=== PATIENT | male | born 1970 | race Caucasian/White ===

== ENCOUNTER 2017-11-18 09:13 | Emergency (ER) | payer OTHER ==
[2017-11-18 09:45] VITALS: BMI 39.6
[2017-11-18 10:15] VITALS: BP 114/74; PULSE 72; RESP 18; TEMP 98.8; O2SAT 99
--- NOTE | 2017-11-18 10:27 | C.PDOC ---
History Of Present Illness 47 y/o male presents to ED with complaints of right sided back radiating to groin and right leg for 3 weeks. Patient states pain is worse with movement and denies dysuria, numbness, weakness or any other complaints at this time. Time Seen by Provider: 11/18/17 10:25 Chief Complaint (Nursing): Back Pain History Per: Patient History/Exam Limitations: no limitations Onset/Duration Of Symptoms: Days Current Symptoms Are (Timing): Still Present Quality Of Discomfort: "Pain" Past Medical History Reviewed: Historical Data, Nursing Documentation, Vital Signs Vital Signs: Last Vital Signs Temp 98.8 F 11/18/17 10:00 Pulse 72 11/18/17 10:00 Resp 18 11/18/17 10:00 BP 114/74 11/18/17 10:00 Pulse Ox 99 11/18/17 10:28 - Medical History PMH: Hypercholesterolemia Surgical History: Appendectomy Family History: States: No Known Family Hx - Social History Hx Tobacco Use: Yes Hx Alcohol Use: Yes Hx Substance Use: No - Immunization History Hx Tetanus Toxoid Vaccination: No Hx Influenza Vaccination: Yes Hx Pneumococcal Vaccination: No Review Of Systems Constitutional: Negative for: Fever, Chills Gastrointestinal: Negative for: Nausea, Vomiting Genitourinary: Negative for: Dysuria, Hematuria Musculoskeletal: Positive for: Back Pain Neurological: Negative for: Weakness, Numbness Physical Exam - Physical Exam Appears: Non-toxic, No Acute Distress Skin: Warm, Dry, No Rash Head: Atraumatic, Normacephalic Oral Mucosa: Moist Neck: Supple Cardiovascular: Rhythm Regular Respiratory: Normal Breath Sounds, No Rales, No Rhonchi, No Wheezing Gastrointestinal/Abdominal: Soft, No Tenderness, No Guarding, No Rebound Back: No CVA Tenderness, Straight Leg Raising (pain is worse), Other (Right para sacral pain on palpation radiating to back of leg) Extremity: Normal ROM, Capillary Refill (<2 seconds) Neurological/Psych: Oriented x3 ED Course And Treatment O2 Sat by Pulse Oximetry: 99 (RA) Pulse Ox Interpretation: Normal Medical Decision Making Medical Decision Making: Impression: Back pain Plan: Muscle relaxant and anti inflammatory medication will be given Pt will be discharged and advised if pain is persistent to have imaging done for further evaluation Disposition - Disposition Referrals: [facility] [Outside] Disposition: HOME/ ROUTINE Disposition Time: 10:25 Condition: GOOD Prescriptions: Cyclobenzaprine [Cyclobenzaprine HCl] 10 mg PO TID #15 tab Naproxen [Naprosyn] 500 mg PO BID #20 tablet Instructions: Sciatica (ED) Forms: [facility] (Georgian) - Clinical Impression Clinical Impression: Sciatica - Scribe Statement The provider has reviewed the documentation as recorded by the Hannahibandrea Briceno All medical record entries made by the Hannahibandrea were at my direction and personally dictated by me. I have reviewed the chart and agree that the record accurately reflects my personal performance of the history, physical exam, medical decision making, and the department course for this patient. I have also personally directed, reviewed, and agree with the discharge instructions and disposition.
== END 2017-11-18 10:35 | disposition home or self-care (01) ==
LOC: C.ER 09:13
DX: M54.30 Sciatica, unspecified side (principal)

== ENCOUNTER 2018-08-17 07:12 | Emergency (ER) | payer SELFPAY ==
[2018-08-17 07:12] VITALS: BMI 39.6
[2018-08-17 07:23] VITALS: RESP 18
[2018-08-17] MEDS ORDERED: Lidocaine 5% Patch TD STA (08:17)
[2018-08-17] MEDS ORDERED: Dexamethasone 4 mg/1 ml IM STA (08:17)
--- NOTE | 2018-08-17 08:17 | C.PDOC ---
History Of Present Illness 47-year-old male, presents to the emergency department with complaints of back pain x3 weeks. 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 He denies any numbness/weakness, nausea/vomiting, direct trauma, bladder/bowel incontinence, or any other associated symptoms. No other complaints at this time. Time Seen by Provider: 08/17/18 07:27 Chief Complaint (Nursing): Back Pain History Per: Patient History/Exam Limitations: no limitations Past Medical History Reviewed: Historical Data, Nursing Documentation, Vital Signs Vital Signs: Last Vital Signs Temp 98.3 F 08/17/18 07:19 Pulse 63 08/17/18 07:19 Resp 18 08/17/18 07:19 BP 144/90 08/17/18 07:19 Pulse Ox 99 08/17/18 07:19 - Medical History PMH: Hypercholesterolemia Surgical History: Appendectomy Family History: States: No Known Family Hx - Social History Hx Tobacco Use: Yes Hx Alcohol Use: Yes Hx Substance Use: No - Immunization History Hx Tetanus Toxoid Vaccination: No Hx Influenza Vaccination: Yes Hx Pneumococcal Vaccination: No Review Of Systems Constitutional: Negative for: Fever, Chills Cardiovascular: Negative for: Chest Pain Gastrointestinal: Negative for: Nausea, Vomiting Genitourinary: Negative for: Incontinence Musculoskeletal: Positive for: Back Pain Neurological: Negative for: Weakness, Numbness Physical Exam - Physical Exam Appears: Non-toxic, No Acute Distress Skin: Warm, Dry, No Rash Head: Atraumatic, Normacephalic Eye(s): bilateral: Normal Inspection Nose: Normal Oral Mucosa: Moist Lips: Normal Appearing Neck: Normal ROM, No Midline Cervical Tenderness, No Paracervical Tenderness, Supple Chest: Symmetrical Cardiovascular: Rhythm Regular, No Friction Rub, No Murmur Respiratory: Normal Breath Sounds, No Accessory Muscle Use Gastrointestinal/Abdominal: Bowel Sounds (active), Soft, No Tenderness Back: No CVA Tenderness, No Vertebral Tenderness, Paraspinal Tenderness (left) Extremity: Normal ROM, No Deformity, No Swelling Pulses: Left Dorsalis Pedis: Normal, Right Dorsalis Pedis: Normal Neurological/Psych: Oriented x3, Normal Speech, Normal Motor, Normal Sensation Gait: Steady ED Course And Treatment O2 Sat by Pulse Oximetry: 99 Pulse Ox Interpretation: Normal (RA) Medical Decision Making Medical Decision Making: Plan: * Decadron, Lidocaine, Toradol * XR Spine * Reassess and Disposition On re-exam, the patient reports improvement of symptoms. Lungs are CTA, heart is RRR, abdomen is soft, non-tender and the patient is tolerating Po well. Follow up with the medical doctor within 1-2 days, Return if worsened. Disposition - Disposition Referrals: Efrain Andrade MD [Medical Doctor] - Disposition: HOME/ ROUTINE Disposition Time: 09:15 Condition: STABLE Additional Instructions: Follow up with the medical doctor within 1-2 days. Return if worsened. Prescriptions: Diazepam [Valium] 2 mg PO TID #21 tab Lidocaine 5% [Lidoderm] 1 each TP DAILY #10 patch Naproxen [Naprosyn] 500 mg PO BID #20 tab Instructions: Low Back Pain in Adults Forms: [facility] (Syriac), Work Excuse - Clinical Impression Clinical Impression: Low back strain - Scribe Statement The provider has reviewed the documentation as recorded by the Scribe (Colton Browning) All medical record entries made by the Scribe were at my direction and personally dictated by me. I have reviewed the chart and agree that the record accurately reflects my personal performance of the history, physical exam, medical decision making, and the department course for this patient. I have also personally directed, reviewed, and agree with the discharge instructions and disposition.
[2018-08-17] MEDS ORDERED: Lidocaine 5% Patch TD ONE (08:30)
--- NOTE | 2018-08-17 09:01 | RAD ---
Date of service: 08/17/2018 PROCEDURE: Radiographs of the Lumbar Spine. HISTORY: L sided low back pain COMPARISON: No prior. FINDINGS: BONES: Normal alignment. No listhesis. No fracture. DISC SPACES: Minimal multilevel spondylosis appreciated diffusely. OTHER FINDINGS: None. IMPRESSION: No fracture or spondylolisthesis. Minimal multilevel spondylosis diffusely noted. No destructive lesion appreciable.
[2018-08-17 09:39] VITALS: BP 143/93; PULSE 68; TEMP 98.8
[2018-08-18 22:32] VITALS: O2SAT 99
== END 2018-08-17 09:39 | disposition home or self-care (01) ==
LOC: C.ER 07:12
DX: S39.012A Strain of muscle, fascia and tendon of lower back, initial encounter (principal); X50.0XXA Overexertion from strenuous movement or load, initial encounter
CPT/HCPCS: 72100; 96372; 99284; J1100; J1885